=== PATIENT | female | born 1990 | race American Indian/Alaskan Native ===

== ENCOUNTER 2019-01-10 02:40 | Emergency (ER) | payer SELFPAY ==
[2019-01-10 03:15] LABS: Basophils % (Auto) 0.4 % (0.0-1.8); Eosinophils # (Auto) 0.3 K/mm3 (0.0-0.4); Eosinophils % (Auto) 2.7 % (0.0-4.3); Hematocrit 45.1 % (30.3-42.9); Hemoglobin 15.1 gm/dl (10.1-14.3); Mean Corpuscular HGB Conc 34 % (30-34); Mean Corpuscular Volume 88 fl (79-97); Monocytes # (Auto) 0.5 K/mm3 (0.0-0.8); Monocytes % (Auto) 4.9 % (0.0-7.3); Platelet Count 327 K/mm3 (140-440); Red Blood Count 5.11 M/mm3 (3.65-5.03); Red Cell Distribution Width 14.5 % (13.2-15.2)
[2019-01-10 03:32] LABS: Alanine Aminotransferase 16 units/L (7-56); Albumin 4.4 g/dL (3.9-5); BUN/Creatinine Ratio 18; Blood Urea Nitrogen 16 mg/dL (7-17); Hemolysis Index 5
[2019-01-10 04:35] LABS: Bilirubin,Urine NEG (Negative); Blood,Urine SM (Negative); Color,Urine Yellow (Yellow); Mucus,Urine FEW /HPF; Protein,Urine <15 mg/dL mg/dL (Negative); Urobilinogen,Urine < 2.0 mg/dL (<2.0)
[2019-01-10] MEDS ORDERED: ONDANSETRON 4 MG ODT TAB PO ONE (05:18)
[2019-01-10] MEDS ORDERED: KETOROLAC 30 MG/1 ML INJ IM ONE (05:18)
[2019-01-10] MEDS ORDERED: LIDOCAINE-MPF (1%) 10 MG/1 ML VIAL 5 ML INFILTRATI ONE (06:31)
[2019-01-10] MEDS ORDERED: AZITHROMYCIN 250 MG TAB PO ONE (06:31)
--- NOTE | 2019-01-10 07:05 | Emergency Department Report ---
ED Abdominal Pain HPI - General Chief Complaint: Abdominal Pain Stated Complaint: PELVIC PAIN Source: patient Mode of arrival: Ambulatory Limitations: No Limitations - History of Present Illness Initial Comments: Patient is a A1 28-year-old -[place] female with no past medical history who presents to the ED with complaint of acute onset persistent severe suprapubic pain that radiates to the left lower quadrant area for the last 3 days with nausea. Patient denies dysuria, urinary frequency and urgency, fever, chills, vomiting, diarrhea, dizziness, low back pain, hematuria, vaginal bleeding, vaginal discharge, dyspareunia, cough, chest pain or shortness of josé antonio th. Complaint: abdominal pain -: Sudden, days(s) (3) Location: suprapubic Radiation: LLQ Migration to: no migration Severity: severe Severity scale (0 -10): 7 Quality: cramping, aching, sharp Consistency: constant Improves With: nothing Worsens With: nothing Associated Symptoms: denies other symptoms, nausea. denies: vomiting, diarrhea, fever, chills, constipation, dysuria, hematemesis, hematochezia, melena, anorexia, syncope - Related Data LMP Date: 12/30/18 Previous Rx's Medication Instructions Recorded Last Taken Type Doxycycline Hyclate [Doxycycline 100 mg PO Q12HR #20 tab 01/10/19 Unknown Rx Hyclate TAB] Ketorolac [Toradol] 10 mg PO Q8H PRN #20 tablet 01/10/19 Unknown Rx Ondansetron [Zofran Odt] 4 mg PO Q6HR PRN #15 tab.rapdis 01/10/19 Unknown Rx metroNIDAZOLE [Flagyl] 500 mg PO Q12HR #20 tab 01/10/19 Unknown Rx traMADol [Ultram] 50 mg PO Q6HR PRN #12 tablet 01/10/19 Unknown Rx Allergies Allergy/AdvReac Type Severity Reaction Status Date / Time No Known Allergies Allergy Verified 01/10/19 02:45 ED Review of Systems ROS: Stated complaint: PELVIC PAIN Other details as noted in HPI Constitutional: denies: chills, fever Eyes: denies: eye pain, eye discharge, vision change ENT: denies: ear pain, throat pain Respiratory: denies: cough, shortness of breath, wheezing Cardiovascular: denies: chest pain, palpitations Endocrine: no symptoms reported Gastrointestinal: abdominal pain (SUPRAPUBIC), nausea. denies: diarrhea Genitourinary: denies: urgency, dysuria, discharge Musculoskeletal: denies: back pain, joint swelling, arthralgia Skin: denies: rash, lesions Neurological: denies: headache, weakness, paresthesias Psychiatric: denies: anxiety, depression Hematological/Lymphatic: denies: easy bleeding, easy bruising ED Past Medical Hx - Past Medical History Previous Medical History?: No - Surgical History Past Surgical History?: Yes Additional Surgical History: ectopic - Social History Smoking Status: Current Every Day Smoker Substance Use Type: None - Medications Home Medications: Home Medications Medication Instructions Recorded Confirmed Last Taken Type Doxycycline Hyclate [Doxycycline 100 mg PO Q12HR #20 tab 01/10/19 Unknown Rx Hyclate TAB] Ketorolac [Toradol] 10 mg PO Q8H PRN #20 tablet 01/10/19 Unknown Rx Ondansetron [Zofran Odt] 4 mg PO Q6HR PRN #15 tab.rapdis 01/10/19 Unknown Rx metroNIDAZOLE [Flagyl] 500 mg PO Q12HR #20 tab 01/10/19 Unknown Rx traMADol [Ultram] 50 mg PO Q6HR PRN #12 tablet 01/10/19 Unknown Rx ED Physical Exam - General Limitations: No Limitations General appearance: alert, in no apparent distress - Head Head exam: Present: atraumatic, normocephalic, normal inspection - Eye Eye exam: Present: normal appearance, PERRL, EOMI Pupils: Present: normal accommodation - ENT ENT exam: Present: normal exam, normal orophraynx, mucous membranes moist, TM's normal bilaterally, normal external ear exam - Neck Neck exam: Present: normal inspection, full ROM - Respiratory Respiratory exam: Present: normal lung sounds bilaterally. Absent: respiratory distress, wheezes, rales, stridor, chest wall tenderness, accessory muscle use, decreased breath sounds - Cardiovascular Cardiovascular Exam: Present: regular rate, normal rhythm, normal heart sounds. Absent: systolic murmur, diastolic murmur, rubs, gallop - GI/Abdominal GI/Abdominal exam: Present: soft, tenderness (Suprapubic), normal bowel sounds. 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 Absent: adnexal mass - Extremities Exam Extremities exam: Present: normal inspection, full ROM, normal capillary refill - Back Exam Back exam: Present: normal inspection, full ROM. Absent: CVA tenderness (L), muscle spasm, paraspinal tenderness, vertebral tenderness - Neurological Exam Neurological exam: Present: alert, oriented X3, CN II-XII intact, normal gait, reflexes normal - Psychiatric Psychiatric exam: Present: normal affect, normal mood - Skin Skin exam: Present: warm, dry, intact, normal color. Absent: rash ED Course - Reevaluation(s) Reevaluation #1: 01/10/19 07:04 This is a 28-year-old -[place] female with no past medical history who presented to the ED with complaint of acute onset persistent suprapubic pain that radiates to the left lower quadrant area with nausea for the last 3 days. In the ED, patient is alert and oriented 3 and is not in distress. Patient was treated for pain in the ED and lab test results were reviewed and are all unremarkable. Physical exam findings is consistent with acute PID. Patient was treated in the ED with Rocephin and azithromycin as well as pain medications. Patient was discharged home on pain medications and antibiotics for acute PID. 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 ED Medical Decision Making - Lab Data Result diagrams: 01/10/19 02:54 01/10/19 02:54 - Medical Decision Making This is a 28-year-old -[place] female with no past medical history who presented to the ED with complaint of acute onset persistent suprapubic pain that radiates to the left lower quadrant area with nausea for the last 3 days. In the ED, patient is alert and oriented 3 and is not in distress. Patient was treated for pain in the ED and lab test results were reviewed and are all u nremarkable. Physical exam findings is consistent with acute PID. Patient was treated in the ED with Rocephin and azithromycin as well as pain medications. Patient was discharged home on pain medications and antibiotics for acute PID. 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 - Differential Diagnosis abdominal pain; PID; Acute UTI; Colitis; diverticulitis; Ovarian cyst Critical care attestation.: If time is entered above; I have spent that time in minutes in the direct care of this critically ill patient, excluding procedure time. ED Disposition Clinical Impression: Acute pelvic inflammatory disease (PID) Abdominal pain Qualifiers: Abdominal location: left lower quadrant Qualified Code(s): R10.32 - Left lower quadrant pain Disposition: TO HOME OR SELFCARE Is pt being admited?: No Does the pt Need Aspirin: No Condition: Stable Instructions: Abdominal Pain (ED), Pelvic Inflammatory Disease (ED) Additional Instructions: Take medications with food, drink plenty of fluids and follow-up with your primary care physician in 5-7 days for reevaluation. Return to the ED immediately if symptoms get worse. Prescriptions: Doxycycline Hyclate [Doxycycline Hyclate TAB] 100 mg PO Q12HR #20 tab metroNIDAZOLE [Flagyl] 500 mg PO Q12HR #20 tab Ketorolac [Toradol] 10 mg PO Q8H PRN #20 tablet PRN Reason: Pain traMADol [Ultram] 50 mg PO Q6HR PRN #12 tablet PRN Reason: Pain Ondansetron [Zofran Odt] 4 mg PO Q6HR PRN #15 tab.rapdis PRN Reason: Nausea Referrals: PRIMARY CARE, [Primary Care Provider] - 3-5 Days Forms: Work/School Release Form(ED) Time of Disposition: 07:06 Print Language: MACEDONIAN
== END 2019-01-10 07:26 | disposition home or self-care (01) ==
LOC: ED 02:40
DX: N73.9 Female pelvic inflammatory disease, unspecified (principal); F17.200 Nicotine dependence, unspecified, uncomplicated; Z79.899 Other long term (current) drug therapy
CPT/HCPCS: 36415; 80053; 81001; 84703; 85025; 87591; 96372; 99284; J0696; J1885; Q0162

== ENCOUNTER 2019-12-18 19:48 | Emergency (ER) | payer SELFPAY ==
[2019-12-18 22:17] LABS: Bacteria,Urine 1+ /HPF (Negative); Bilirubin,Urine NEG (Negative); Blood,Urine MOD (Negative); Color,Urine Yellow (Yellow); Mucus,Urine 1+ /HPF; Protein,Urine <15 mg/dL mg/dL (Negative); Urobilinogen,Urine < 2.0 mg/dL (<2.0)
[2019-12-18 22:31] LABS: HCG Qualitative,Urine Positive (Negative)
--- NOTE | 2019-12-18 23:43 | Emergency Department Report ---
ED Female HPI - General Chief complaint: Abdominal Pain Stated complaint: ABD PAIN/CRAMPING Time Seen by Provider: 12/18/19 23:14 Source: patient Mode of arrival: Ambulatory Limitations: No Limitations - History of Present Illness Initial comments: 29-year-old -[place] Islander female presents to the emergency room stating that she has had 3+ dvcb-pbr-xxpobfh tests and presents with left side lower abdominal pain with nausea for 2 days. Patient reports her last menstrual period was November 11, 2019. Patient comes in concerned because she has had an ectopic in 2012 of her right fallopian tube which was removed. Patient is concerned that she may be in her left tube. Patient is 2 para 0. She reports her pain is sharp and aching a 4 out of 10. She reports she is not on control. She denies any dysuria, urinary urgency, vaginal bleeding, vaginal discharge or urinary frequency. Onset/Timin -: days(s) Location: LLQ Severity: mild Severity scale (0 -10): 4 Quality: sharp, aching Consistency: intermittent Are you Now?: Yes Last Menstrual Period: 11/11/19 EDC: 08/17/20 Associated Symptoms: nausea/vomiting. denies: vaginal discharge, vaginal bleeding, fever/chills, headaches, loss of appetite, dysuria, shortness of breath - Related Data Sexually active: Yes : 2 Para: 0 A: 1 (Ectopic ) Previous Rx's Medication Instructions Recorded Last Taken Type Doxycycline Hyclate [Doxycycline 100 mg PO Q12HR #20 tab 01/10/19 Unknown Rx Hyclate TAB] Ketorolac [Toradol] 10 mg PO Q8H PRN #20 tablet 01/10/19 Unknown Rx Ondansetron [Zofran Odt] 4 mg PO Q6HR PRN #15 tab.rapdis 01/10/19 Unknown Rx metroNIDAZOLE [Flagyl] 500 mg PO Q12HR #20 tab 01/10/19 Unknown Rx traMADoL [Ultram] 50 mg PO Q6HR PRN #12 tablet 01/10/19 Unknown Rx [id number]/Iron/Folic Acid/Dha [Ob 1 each PO QDAY #90 capsule 12/19/19 Unknown Rx Complete Petite Softgel] Allergies Allergy/AdvReac Type Severity Reaction Status Date / Time No Known Allergies Allergy Verified 01/10/19 02:45 ED Review of Systems ROS: Stated complaint: ABD PAIN/CRAMPING Other details as noted in HPI Comment: All other systems reviewed and negative ED Past Medical Hx - Past Medical History Previous Medical History?: Yes - Surgical History Past Surgical History?: Yes Additional Surgical History: ectopic - Social History Smoking Status: Current Every Day Smoker - Medications Home Medications: Home Medications Medication Instructions Recorded Confirmed Last Taken Type Doxycycline Hyclate [Doxycycline 100 mg PO Q12HR #20 tab 01/10/19 Unknown Rx Hyclate TAB] Ketorolac [Toradol] 10 mg PO Q8H PRN #20 tablet 01/10/19 Unknown Rx Ondansetron [Zofran Odt] 4 mg PO Q6HR PRN #15 tab.rapdis 01/10/19 Unknown Rx metroNIDAZOLE [Flagyl] 500 mg PO Q12HR #20 tab 01/10/19 Unknown Rx traMADoL [Ultram] 50 mg PO Q6HR PRN #12 tablet 01/10/19 Unknown Rx Itwimuku31/Iron/Folic Acid/Dha [Ob 1 each PO QDAY #90 capsule 12/19/19 Unknown Rx Complete Petite Softgel] ED Physical Exam - General Limitations: No Limitations General appearance: alert, in no apparent distress - Head Head exam: Present: atraumatic, normocephalic - Eye Eye exam: Present: normal appearance - ENT ENT exam: Present: normal exam, mucous membranes moist - Neck Neck exam: Present: normal inspection, full ROM - Respiratory Respiratory exam: Present: normal lung sounds bilaterally. Absent: respiratory distress - Cardiovascular Cardiovascular Exam: Present: regular rate, normal rhythm. Absent: systolic murmur, diastolic murmur, rubs, gallop - GI/Abdominal GI/Abdominal exam: Present: soft, normal bowel sounds - Back Exam Back exam: Present: normal inspection, full ROM - Neurological Exam Neurological exam: Present: alert, oriented X3, normal gait - Psychiatric Psychiatric exam: Present: normal affect, normal mood - Skin Skin exam: Present: warm, dry, intact, normal color. Absent: rash ED Course Vital Signs 12/18/19 20:51 Temperature 98.0 F Pulse Rate 97 H Respiratory 16 Rate Blood Pressure 143/94 O2 Sat by Pulse 98 Oximetry ED Medical Decision Making - Lab Data Laboratory Tests 12/18/19 12/18/19 12/18/19 20:54 23:32 23:32 WBC 9.8 RBC 4.97 Hgb 15.1 H Hct 45.4 H MCV 91 MCH 30 MCHC 33 RDW 13.8 Plt Count 337 Sodium Potassium Chloride Carbon Dioxide Anion Gap BUN Creatinine Estimated GFR BUN/Creatinine Ratio Glucose Calcium HCG, Quant 1377 H Urine Color Yellow Urine Turbidity Clear Urine pH 6.0 Ur Specific [place] 1.014 Urine Protein <15 mg/dl Urine Glucose (UA) Neg Urine Ketones Neg Urine Blood Mod Urine Nitrite Neg Urine Bilirubin Neg Urine Urobilinogen < 2.0 Ur Leukocyte Esterase Tr Urine WBC (Auto) 3.0 Urine RBC (Auto) 3.0 U Epithel Cells (Auto) 9.0 Urine Bacteria (Auto) 1+ Urine Mucus 1+ Urine HCG, Qual Positive A 12/18/19 23:32 WBC RBC Hgb Hct MCV MCH MCHC RDW Plt Count Sodium 137 Potassium 3.6 Chloride 103.8 Carbon Dioxide 20 L Anion Gap 17 BUN 9 Creatinine 0.8 Estimated GFR > 60 BUN/Creatinine Ratio 11 Glucose 97 Calcium 9.3 HCG, Quant Urine Color Urine Turbidity Urine pH Ur Specific [place] Urine Protein Urine Glucose (UA) Urine Ketones Urine Blood Urine Nitrite Urine Bilirubin Urine Urobilinogen Ur Leukocyte Esterase Urine WBC (Auto) Urine RBC (Auto) U Epithel Cells (Auto) Urine Bacteria (Auto) Urine Mucus Urine HCG, Qual - Radiology Data Radiology results: report reviewed Referring Physician:BRANDEE TORRESPatient Name:REESE MURDOCKPatient ID:[id number] of :[id number]:FemaleAccession:[id number] Date:[id number] Status:Finalized Findings [address] [address] Ultrasound Report Signed Patient: REESE MURDOCK MR#: [id number] : 1990 Acct:[id number] Age/Sex: 29 / F ADM Date: 12/18/19 Loc: ED Attending Dr: Ordering Physician: BRANDEE TORRES Date of Service: 12/18/19 Procedure(s): US OB transvaginal Accession Number(s): [id number] cc: BRANDEE TORRES OBSTETRICAL ULTRASOUND HISTORY: Left-sided pelvic pain. FINDINGS: The uterus measures 7.1 x 4 x 4.2 cm. The endometrial stripe measures 8.2 mm. An early gestational sac is dated 5 weeks. No pole or yolk sac. Right ovary measures 3.4 x 2.7 x 1.6 cm. Left ovary measures 4.2 x 2.1 x 1.9 cm. Both ovaries demonstrate flow. Negative for adnexal mass or fluid. - Medical Decision Making 29-year-old -[place] female presents to the emergency room stating that she has had 3+ vadr-lgp-vzdskay tests and presents with left side lower abdominal pain with nausea for 2 days. Patient reports her last menstrual period was November 11, 2019. Patient comes in concerned because she has had an ectopic in 2012 of her right fallopian tube which was removed. Patient is concerned that she may be in her left tube. Patient is 2 para 0. She reports her pain is sharp and aching a 4 out of 10. She reports she is not on control. She denies any dysuria, urinary urgency, vaginal bleeding, vaginal discharge or urinary frequency. Critical care attestation.: If time is entered above; I have spent that time in minutes in the direct care of this critically ill patient, excluding procedure time. ED Disposition Clinical Impression: Qualifiers: Weeks of gestation: less than 8 weeks Qualified Code(s): Z3A.01 - Less than 8 weeks gestation of Disposition: DC-01 TO HOME OR SELFCARE Is pt being admited?: No Does the pt Need Aspirin: No Condition: Stable Instructions: Abdominal Pain (ED) Additional Instructions: Ultrasound shows that you are approximately 5 weeks . Urinalysis negative for any infection. Be aware you can only take Tylenol for pain. Please discuss any ugsh-tbm-bbrqrto medications with your [facility] prior to consuming. I like for you to start taking a vitamins increase your water intake and follow-up with an [facility] in the next week. I have listed several below for your convenience. Prescriptions: Lmumeqrd34/Iron/Folic Acid/Dha [Ob Complete Petite Softgel] 1 each PO QDAY #90 c apsule Referrals: PRIMARY CARE, [Primary Care Provider] - 3-5 Days [facility] [Provider Group] - 3-5 Days [facility] [Provider Group] - 3-5 Days [facility] [Provider Group] - 3-5 Days Forms: Work/School Release Form(ED)
--- NOTE | 2019-12-19 00:10 | Ultrasound Report ---
OBSTETRICAL ULTRASOUND HISTORY: Left-sided pelvic pain. FINDINGS: The uterus measures 7.1 x 4 x 4.2 cm. The endometrial stripe measures 8.2 mm. An early gest ational sac is dated 5 weeks. No pole or yolk sac. Right ovary measures 3.4 x 2.7 x 1.6 cm. Left ovary measures 4.2 x 2.1 x 1.9 cm. Both ovaries demonst rate flow. Negative for adnexal mass or fluid. IMPRESSION: 1. Early gestational sac. 2. Adnexa are unremarkable. Signer Name: Ankush Hu MD Signed: 12/19/2019 12:05 AM Workstation Name: [id number]
--- NOTE | 2019-12-19 00:10 | Ultrasound Report ---
OBSTETRICAL ULTRASOUND HISTORY: Left-sided pelvic pain. FINDINGS: The uterus measures 7.1 x 4 x 4.2 cm. The endometrial stripe measures 8.2 mm. An early gest ational sac is dated 5 weeks. No pole or yolk sac. Right ovary measures 3.4 x 2.7 x 1.6 cm. Left ovary measures 4.2 x 2.1 x 1.9 cm. Both ovaries demonst rate flow. Negative for adnexal mass or fluid. IMPRESSION: 1. Early gestational sac. 2. Adnexa are unremarkable. Signer Name: Ankush uH MD Signed: 12/19/2019 12:05 AM Workstation Name: [id number]
[2019-12-19 00:28] LABS: BUN/Creatinine Ratio 11; Blood Urea Nitrogen 9 mg/dL (7-17); Calcium 9.3 mg/dL (8.4-10.2); Hemolysis Index 4
[2019-12-19 00:46] LABS: Hematocrit 45.4 % (30.3-42.9); Hemoglobin 15.1 gm/dl (10.1-14.3); Mean Corpuscular HGB Conc 33 % (30-34); Mean Corpuscular Volume 91 fl (79-97); Platelet Count 337 K/mm3 (140-440); Red Blood Count 4.97 M/mm3 (3.65-5.03); Red Cell Distribution Width 13.8 % (13.2-15.2)
[2019-12-19 01:19] VITALS: BP 120/85
== END 2019-12-19 01:19 | disposition home or self-care (01) ==
LOC: ED 19:48
DX: O26.891 Other specified pregnancy related conditions, first trimester (principal); Z3A.01 Less than 8 weeks gestation of pregnancy; O99.331 Smoking (tobacco) complicating pregnancy, first trimester
CPT/HCPCS: 36415; 76801; 76817; 80048; 81001; 81025; 84702; 85027

== ENCOUNTER 2020-05-04 21:23 | Outpatient (CLI) | payer OTHER ==
[2020-05-04 21:43] VITALS: BP 124/87
[2020-05-04] MEDS ORDERED: LACTATED RINGERS 1,000 ML IV ONE (21:56)
[2020-05-04 22:44] LABS: Bilirubin,Urine NEG (Negative); Blood,Urine NEG (Negative); Color,Urine Yellow (Yellow); Mucus,Urine FEW /HPF; Protein,Urine <15 mg/dL mg/dL (Negative); Urobilinogen,Urine < 2.0 mg/dL (<2.0)
== END 2020-05-04 23:20 | disposition home or self-care (01) ==
LOC: TRG 21:23 → APU 21:32 → TRG 23:20
PROVIDERS: ATTEND Obstetrics & Gynecology
DX: O26.892 Other specified pregnancy related conditions, second trimester (principal); M54.5 Low back pain; Z3A.24 24 weeks gestation of pregnancy
CPT/HCPCS: 59025; 81001

== ENCOUNTER 2020-07-19 15:00 | Outpatient (CLI) | payer OTHER ==
[2020-07-19] MEDS ORDERED: LACTATED RINGERS 1,000 ML IV SCH (16:45)
[2020-07-19 17:55] LABS: Bilirubin,Urine NEG (Negative); Blood,Urine NEG (Negative); Color,Urine Yellow (Yellow); Mucus,Urine FEW /HPF; Protein,Urine <15 mg/dL mg/dL (Negative); Urobilinogen,Urine < 2.0 mg/dL (<2.0)
[2020-07-19 18:20] VITALS: BP 115/78
--- NOTE | 2020-07-19 19:13 | Ultrasound Report ---
ULTRASOUND BIOPHYSICAL PROFILE INDICATION / CLINICAL INFORMATION: well-being please evaluate for HARLEY. Biophysical profile COMPARISON: None available. FINDINGS: BREATHING MOVEMENT = 2 GROSS BODY MOVEMENT = 2 TONE = 2 QUALITATIVE AMNIOTIC FLUID VOLUME = 2 TOTAL BIOPHYSICAL SCORE = 11/11 AMNIOTIC FLUID INDEX (cm) = 10.8 PRESENTATION: Cephalic. HEART RATE (beats per minute): 127 IMPRESSION: 1. biophysical profile = 11/11 Signer Name: Fly Peña MD Signed: 07/19/2020 7:09 PM Workstation Name: [id number]
== END 2020-07-19 19:22 | disposition home or self-care (01) ==
LOC: TRG 15:00 → APU 15:01 → TRG 19:22
DX: O47.03 False labor before 37 completed weeks of gestation, third trimester (principal); Z3A.35 35 weeks gestation of pregnancy
CPT/HCPCS: 59025; 76815; 76819; 81001; 96360; 96361; J7120

== ENCOUNTER 2020-07-24 10:09 | Outpatient (CLI) | payer OTHER ==
[2020-07-24 10:45] VITALS: BP 112/65
[2020-07-24] MEDS ORDERED: LACTATED RINGERS 1,000 ML IV ONE (10:48)
[2020-07-24] MEDS ORDERED: LACTATED RINGERS 500 ML IV ONE (16:34)
--- NOTE | 2020-07-24 17:05 | History and Physical Report ---
History of Present Illness Date of examination: 07/24/20 Date of admission: 07/24/20 Chief complaint: Pt arrived with c/o spotting and uc several hours History of present illness: 29 y/o presented to [facility] ob triage @ 36.2 wks with c/o vag spotting and uc x several hours. She admitted to active FM and denied LOF. Pt initiated her pnc with [facility] at 12 4/7 wks. She was co managed by [facility] r/t pos quad screen- NIPS low risk. H/o right ectopic with salpingectomy. Past smoker. Family hx is unremarkable. Pt had 1 elevated b/p throughout preg. AST-42 ALT 89 on 04/26/20. GBS is unknown. 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) Social history: single, full code - Obstetrical History Expected Date of Delivery: 08/19/20 Actual Gestation: 36 Week(s) 2 Day(s) : 3 Para: 0 Induced : 1 Number of Living Children: 0 Medications and Allergies Allergies Allergy/AdvReac Type Severity Reaction Status Date / Time No Known Allergies Allergy Verified 01/10/19 02:45 Home Medications Medication Instructions Recorded Confirmed Last Taken Type Doxycycline Hyclate [Doxycycline 100 mg PO Q12HR #20 tab 01/10/19 Unknown Rx Hyclate TAB] Ketorolac [Toradol] 10 mg PO Q8H PRN #20 tablet 01/10/19 Unknown Rx Ondansetron [Zofran Odt] 4 mg PO Q6HR PRN #15 tab.rapdis 01/10/19 Unknown Rx metroNIDAZOLE [Flagyl] 500 mg PO Q12HR #20 tab 01/10/19 Unknown Rx traMADoL [Ultram] 50 mg PO Q6HR PRN #12 tablet 01/10/19 Unknown Rx Ktbyhplw02/Iron/Folic Acid/Dha [Ob 1 each PO QDAY #90 capsule 12/19/19 Unknown Rx Complete Petite Softgel] Active Meds: Active Medications Lactated Ringer's (Lactated Ringers) 500 mls @ 999 mls/hr IV BOLUS ONE Stop: 07/24/20 17:04 Review of Systems All systems: negative Eyes: deferred Ears, nose, mouth and throat: deferred Breasts: normal Genitourinary: normal appearance Rectal Exam: deferred - Vital Signs Vital signs: Vital Signs Pulse BP Pulse Ox 86 112/65 99 07/24/20 10:40 07/24/20 10:40 07/24/20 10:40 Temp Pulse Resp BP Pulse Ox 98.7 F 69 19 112/65 96 07/24/20 10:42 07/24/20 13:51 07/24/20 10:42 07/24/20 10:40 07/24/20 13:51 - Physical Exam Breasts: Positive: normal Abdomen: Positive: normal appearance, soft, normal bowel sounds Genitourinary (Female): Positive: normal external genitalia, normal perenium Vulva: both: normal Vagina: Positive: normal moisture Uterus: Positive: enlarged, normal contour, other (gravid) Adnexa: both: normal Anus/Rectum: Positive: normal perianal skin Extremities: Positive: normal - Obstetrical FHR: category 1 Uterine Contraction Monitor Mode: External Cervical Dilatation: 3 Cervical Effacement Percentage: 50 station: -3 Uterine Contraction Pattern: Irregular Uterine Tone Measurement Phase: Resting Uterine Contraction Intensity: Mild Results All other labs normal. Assessment and Plan A: IUP@ 36.2 wks R/O PTL + AFP/ NIPS neg GBS unknown p: Admit to L&D Continuous monitoring Notify NICU UA C&S GBS prophylaxis in active labor Expectant mtg
--- NOTE | 2020-07-24 18:48 | Discharge Summary ---
Providers - Providers Date of Admission: 07/24/20 Date of discharge: 07/24/20 Attending physician: ENMANUEL ISAACS JR, MD Primary care physician: DENITA KLEIN MD Hospitalization Reason for admission: other (r/o PTL) Hospital course: 29 [facility] 36.2 wks with c/o vag spotting and uc x several hours. She admitted to active FM and denied LOF. Pt initiated her pnc with [facility] at 12 4/7 wks. She was co managed by [facility] r/t pos quad screen- NIPS low risk. H/o right ectopic with salpingectomy. Past smoker. Family hx is unremarkable. Pt had 1 elevated b/p throughout preg. AST-42 ALT 89 on 04/26/20. GBS is unknown. Patient without regular contractions or cervical change and discharge home. Condition at discharge: Good Disposition: DC-01 TO HOME OR SELFCARE Plan - Provider Discharge Summary Activity: routine Diet: routine Instructions: routine Additional instructions: [] Smoking cessation referral if applicable(refer to patient education folder for contact #) [] Refer to [facility]'s [facility] Booklet Call your doctor immediately for: * Fever > 100.5 * Heavy vaginal bleeding ( >1 pad per hour) * Severe persistent headache * Shortness of breath * Reddened, hot, painful area to leg or breast * Drainage or odor from incision. * Keep incision clean and dry at all times and follow doctor's instructions regarding bathing/showering - Follow up plan Follow up: DENITA KLEIN MD [Primary Care Provider] - 7 Days
== END 2020-07-24 19:58 | disposition home or self-care (01) ==
LOC: TRG 10:09 → APU 10:12 → LD 15:18 → TRG 19:58
PROVIDERS: ATTEND Obstetrics & Gynecology
DX: O26.853 Spotting complicating pregnancy, third trimester (principal); Z3A.36 36 weeks gestation of pregnancy
CPT/HCPCS: 59025

== ENCOUNTER 2020-07-26 17:14 | Outpatient (CLI) | payer OTHER ==
[2020-07-26 18:34] VITALS: BP 124/86
[2020-07-26 19:54] LABS: Bilirubin,Urine NEG (Negative); Blood,Urine NEG (Negative); Calcium Oxalate Crystals,Urine 1+; Color,Urine Yellow (Yellow); Protein,Urine <15 mg/dL mg/dL (Negative); Renal Epithelial Cells,Urine 1 /LPF; Urobilinogen,Urine < 2.0 mg/dL (<2.0)
== END 2020-07-26 19:50 | disposition left against medical advice (07) ==
LOC: APU 17:14 → TRG 17:14 → LD 17:14 → TRG 19:50
PROVIDERS: ATTEND Obstetrics & Gynecology
DX: Z34.93 Encounter for supervision of normal pregnancy, unspecified, third trimester (principal); Z3A.36 36 weeks gestation of pregnancy
CPT/HCPCS: 81001; 87086